=== PATIENT | female | born 1980 | race Two or more races ===

== ENCOUNTER 2017-07-23 11:45 | Emergency (ER) | payer MEDICAID ==
[~2017-07-23] VITALS: Ht 152.4 cm; Wt 61.2 kg
[2017-07-23] MEDS ORDERED: TYLENOL EXTRA500 MG ORAL (12:04)
[2017-07-23] MEDS ORDERED: Morphine Sulfate 4mg/ml Inj IM ONE (12:30)
--- NOTE | 2017-07-23 13:09 | Diagnostic Imaging Report ---
Indication: left ankle pain Comparison: None Findings: 3 views of the left ankle obtained. Acute fracture of the lateral medial malleoli demonstrated. There is evidence of disruption of the ankle mortise with moderate lateral subluxation of the talus with respect to the tibial plafond. IMPRESSION: Unstable bimalleolar fracture
[2017-07-23] MEDS ORDERED: NORCO 5-325 TA1 EAC1 ORAL (13:45)
[2017-07-23 14:05] VITALS: BP 118/68
--- NOTE | 2017-07-23 16:04 | Emergency Room Report ---
History of Present Illness General Chief Complaint: Lower Extremity Injury Source: Patient Present Illness HPI The patient is a 36-year-old female presenting for continued left ankle pain. She states that she was seen at another emergency department one week ago after she fell and was diagnosed with ankle fracture. She was placed in a posterior splint and provided crutches and states that pain has continued. She states that she is currently breast-feeding and has tried Tylenol which has not been helping. She is unsure of next steps for treatment. Pain is a 9/10 dull ache and does not radiate from the ankle. Worse with touch and movement. She denies any numbness or tingling. She denies any other symptoms Allergies: Coded Allergies: No Known Allergies (Unverified , 07/23/17) Patient History Past Medical History: see triage record Pertinent Family History: none Last Menstrual Period: . Now: No : 2 Para: 2 Reviewed Nursing Documentation: PMH: Agreed, PSxH: Agreed Nursing Documentation-PMH Past Medical History: No Stated History Review of Systems All Other Systems: negative except mentioned in HPI Physical Exam Vital Signs Date Time Temp Pulse Resp B/P (MAP) Pulse Ox O2 Delivery O2 Flow Rate FiO2 07/23/17 11:59 98.1 106 20 119/69 98 Room Air Sp02 EP Interpretation: reviewed, normal General Appearance: no apparent distress, alert, GCS 15, non-toxic Head: normocephalic, atraumatic Eyes: bilateral eye normal inspection, bilateral eye PERRL Musculoskeletal: back normal, no calf tenderness, decreased range of motion - L ankle, tender - L ankle diffusely Neurologic: alert, oriented x3, responsive, motor strength/tone normal, sensory intact, speech normal Psychiatric: judgement/insight normal, memory normal, mood/affect normal, no suicidal/homicidal ideation Skin: no rash, warm/dry, well hydrated, other - ecchymosis L ankle Lymphatic: no adenopathy Procedures Splinting Splinting : Consent: Verbal Location: L leg Hand-Made Type: plaster Splint: poserior short - 3 sided Pre-Proc Neuro Vasc Exam: normal Post-Proc Neuro Vasc Exam: normal Patient Tolerated: Well Complications: None Medical Decision Making PA Attestation Dr. Gonsalves is my supervising physician. Patient management was discussed with my supervising physician Diagnostic Impression: Primary Impression: Bimalleolar fracture of left ankle Qualified Codes: S82.842K - Displaced bimalleolar fracture of left lower leg, subsequent encounter for closed fracture with nonunion ER Course The patient is a 36-year-old female presenting for continued left ankle pain. Ddx considered include but not limited to sprain/strain, fracture, contusion, among others PE: NAD TTP over the ankle diffusely. + Edema and ecchymosis. Limited AROM. SILT X-ray of the ankle shows by malleolus fracture. Unstable. Left leg 3 sided splint is placed The patient was told that this needs surgical fixation. She is provided the radiology report as well as radiographs on disc. She states that she will go to [facility] for orthopedic treatment today. She is given prescription for pain medication. ER precautions given Other X-Ray Diagnostic Results Other X-Ray Diagnostic Results : X-Ray ordered: L ankle # of Views/Limited Vs Complete: 3 View, Complete Indication: Pain EP Interpretation: Yes PA Xray: Interpretation reviewed, by supervising MD, and agrees with findings. Interpretation: other - bi mal fracture Impression: Other - bi mal fracture Electronically Signed by: Arci Gonzalez PA-C Last Vital Signs Date Time Temp Pulse Resp B/P (MAP) Pulse Ox O2 Delivery O2 Flow Rate FiO2 07/23/17 13:36 98.0 07/23/17 11:59 106 20 119/69 98 Room Air Status: improved Disposition: HOME, SELF-CARE Condition: Improved Scripts Hydrocodone Bit/Acetaminophen 5-325* (NORCO 5-325 TABLET*) 1 Each Tablet 1 TAB ORAL Q6HR Y for For Pain, #15 TAB Prov: ARIC GONZALEZ 07/23/17 Patient Instructions: Ankle Fracture, Cast or Splint Care Additional Instructions: The patient was informed that ankle fracture will need surgery as soon as possible. She understands and states that she will go to [facility] for orthopedic evaluation and treatment. She was provided her radiographs on x-ray as well as x-ray report. ARIC GONZALEZ Jul 23, 2017 16:04
== END 2017-07-23 14:13 | disposition home or self-care (01) ==
LOC: EMR 12:15
DX: S82.842K Displaced bimalleolar fracture of left lower leg, subsequent encounter for closed fracture with nonunion (principal); W19.XXXD Unspecified fall, subsequent encounter
CPT/HCPCS: 29515; 73610; 96372; 99284; J2270